=== PATIENT | female | born 2000 | race Caucasian/White ===

== ENCOUNTER 2023-03-30 19:08 | Emergency (ER) | payer SELFPAY ==
[~2023-03-30] VITALS: Ht 165.1 cm; Wt 73.0 kg
[2023-03-30 19:16] VITALS: BP 112/56; PULSE 122; RESP 14; TEMP 98.7; O2SAT 96
[2023-03-30] MEDS ORDERED: ONDANSETRON 4MG ODT PO ONE (19:45)
[2023-03-30] MEDS ORDERED: ONDANSETRON 4MG ODT PO NR (22:45)
== END 2023-03-30 23:57 | disposition home or self-care (01) ==
LOC: ER 19:08
DX: T40.711A Poisoning by cannabis, accidental (unintentional), initial encounter (principal); Y92.89 Other specified places as the place of occurrence of the external cause
CPT/HCPCS: 99283; Q0162